=== PATIENT | female | born 1940 | race Caucasian/White ===

== ENCOUNTER 2018-11-05 18:52 | Emergency (ER) | payer OTHER ==
[~2018-11-05] VITALS: Ht 162.6 cm; Wt 72.6 kg
[~2018-11-05 18:52] MED LIST: ADULT LOW DOSE81 MG PO; ALPRAZOLAM 0.50.5 M1 PO; ASPIRIN325 PO; ATENOLOL 50 MG50 M1 PO; CARDIZEM CD120 MG; CARTIA XT240 MG PO; COUMADIN 5 MG TA5 M1 PO; DILTIAZEM 24HR180 MG PO; DILTIAZEM 24HR240 MG PO; DILTIAZEM ER120 M1 PO; ENDUR-ACIN500 MG; FLECAINIDE ACE100 MG PO; K-DUR 20 MEQ T20 MEQ PO; LAMISIL250 MG PO; LISINOPRIL40 MG PO; LOVENOX SQ; PANTOPRAZOLE SO40 M1 PO; PHENERGAN 25 MG25 M1 PO; PRADAXA150 MG PO; PRAVACHOL 20 MG20 M1 PO; PRAVASTATIN SOD20 MG PO; PRILOSEC40 MG PO; SYNTHROID150 MCG PO; XANAX 0.5 MG0.5 M1 PO; ZESTRIL5 MG PO
[2018-11-05 20:54] VITALS: BP 0/0
== END 2018-11-05 20:57 ==
LOC: ER 18:52
DX: I46.9 Cardiac arrest, cause unspecified (principal); E78.00 Pure hypercholesterolemia, unspecified; I10 Essential (primary) hypertension; E03.9 Hypothyroidism, unspecified; I48.91 Unspecified atrial fibrillation; Z87.891 Personal history of nicotine dependence; Z88.8 Allergy status to other drugs, medicaments and biological substances